=== PATIENT | female | born 1970 | race African-American/Black ===

== ENCOUNTER 2017-08-18 14:51 | Inpatient (IN) | payer MEDICAID ==
[~2017-08-18] VITALS: Ht 167.6 cm; Wt 104.8 kg
[2017-08-18] MEDS ORDERED: OMEPRAZOLE40 M1 ORAL (14:58)
[2017-08-18] MEDS ORDERED: ASPIR 8181 MG ORAL (14:58)
[2017-08-18] MEDS ORDERED: DILTIAZEM 24HR120 M1 ORAL (14:58)
[2017-08-18] MEDS ORDERED: METOPROLOL SUCC25 MG ORAL (14:58)
[2017-08-18 14:59] VITALS: BP 146/91
[2017-08-18] MEDS ORDERED: Sodium Chloride 500ML 500 ML IV ONE (15:12)
[2017-08-18] MEDS: Nitroglycerin Subl 0.4mg tab SL PRN ×2 (15:35→17:32)
[2017-08-18 15:46] LABS: BASOPHILS % (AUTO) 0.6 % (0.0-2.0); EOSINOPHILS % (AUTO) 0.9 % (0.0-3.0); HEMATOCRIT 36.3 % (37.0-47.0); HEMOGLOBIN 11.2 G/DL (12.0-16.0); LYMPHOCYTES % (AUTO) 15.3 % (20.0-45.0); MEAN CORPUSCULAR VOLUME 82 FL (80-99); MONOCYTES % (AUTO) 4.2 % (1.0-10.0); PLATELET COUNT 421 K/UL (150-450); RED BLOOD COUNT 4.44 M/UL (4.20-5.40); RED CELL DISTRIBUTION WIDTH 14.6 % (11.6-14.8); WHITE BLOOD COUNT 14.6 K/UL (4.8-10.8)
--- NOTE | 2017-08-18 15:46 | Diagnostic Imaging Report ---
Indication: Chest pain Technique: XRAY Chest 1v Comparison: None Findings: Low lung volumes artifactually exaggerate heart size and vascular markings. Heart size and not reliably assessed but may be within the upper limits for normal. There is slight haziness of the bilateral lower lungs which is likely related to vascular crowding given low lung volumes. No definite focal airspace consolidation, no pleural effusion. No pneumothorax. No acute bony lesion seen. Impression: Limited exam with low lung volumes. Slight haziness of the bilateral lower lungs thought to be related to vascular crowding, exaggerated by low lung volumes. Heart size is also not well assessed. Consider repeat evaluation with improved inspiratory effort for better evaluation as clinically indicated. No definite focal airspace consolidation.
[2017-08-18 15:59] LABS: ANION GAP 13 mmol/L (5-15); BLOOD UREA NITROGEN 9 mg/dL (7-18); CALCIUM 8.8 MG/DL (8.5-10.1); CARBON DIOXIDE 23 MMOL/L (21-32); CHLORIDE 103 MMOL/L (98-107); CREATININE 0.9 MG/DL (0.55-1.30); POTASSIUM 3.5 MMOL/L (3.5-5.1); SODIUM 139 MMOL/L (136-145)
[2017-08-18 16:16] LABS: ALANINE AMINOTRANSFERASE 14 U/L (12-78); ALBUMIN 3.3 G/DL (3.4-5.0); ALBUMIN/GLOBULIN RATIO 0.9 (1.0-2.7); ALKALINE PHOSPHATASE 91 U/L (46-116); ASPARTATE AMINO TRANSFERASE 14 U/L (15-37); BILIRUBIN,TOTAL 0.2 MG/DL (0.2-1.0); CKMB < 0.5 NG/ML (0.0-3.6); CREATINE KINASE 45 U/L (26-308)
[2017-08-18] MEDS ORDERED: Morphine Sulfate 2mg/ml Inj IVP ONE (16:45)
[2017-08-18 17:00] VITALS: BP 130/75
[2017-08-18 17:30] LABS: APPEARANCE,URINE CLEAR; BILIRUBIN, URINE NEGATIVE (NEGATIVE); GLUCOSE, URINE (UA) NEGATIVE (NEGATIVE); KETONES,URINE NEGATIVE (NEGATIVE); LEUKOCYTE ESTERASE ,URINE 1+ (NEGATIVE); NITRITE,URINE NEGATIVE (NEGATIVE); PH,URINE 6 (4.5-8.0); PROTEIN,URINE 1+ (NEGATIVE); UROBILINOGEN,URINE NORMAL MG/DL (0.0-1.0)
[2017-08-18] MEDS ORDERED: Mylanta II UD 30ml ORAL PRN (17:30)
[2017-08-18] MEDS ORDERED: Nitroglycerin Subl 0.4mg tab SL PRN (17:30)
[2017-08-18] MEDS ORDERED: Morphine Sulfate 4mg/ml Inj IVP ONE (17:30)
[2017-08-18] MEDS ORDERED: Acetaminophen 650 MG SUPP RECTAL PRN ×2 (17:30)
[2017-08-18] MEDS ORDERED: Zolpidem 5mg tab ORAL PRN (17:30)
[2017-08-18] MEDS ORDERED: Morphine Sulfate 4mg/ml Inj IVP PRN (17:30)
[2017-08-18] MEDS ORDERED: Miralax 17gm pkt ORAL PRN (17:30)
[2017-08-18 17:33] LABS: COLOR,URINE YELLOW
[2017-08-18 18:15] VITALS: BP 128/72
[2017-08-18 20:23] VITALS: BP 143/60
[2017-08-18] MEDS: Albuterol/Ipratropium 3ml neb HHN PRN (21:17)
[2017-08-18] MEDS: Atorvastatin 80mg tab ORAL SCH (21:27)
[2017-08-18] MEDS: Docusate 100mg cap ORAL SCH (21:28)
[2017-08-18] MEDS: Metoprolol Succinate XL 25mg tab ORAL SCH (21:28)
[2017-08-18] MEDS: Heparin 5000 units/ml inj SUBQ SCH (21:30)
[2017-08-18] MEDS: Morphine Sulfate 2mg/ml Inj IVP PRN (21:34)
--- NOTE | 2017-08-18 22:09 | Emergency Room Report ---
History of Present Illness General Chief Complaint: Chest Pain Source: Patient Present Illness HPI 47-year-old female presents ED complaining of chest pain which started today. Sudden onset. Midsternal, pressure-like, 8 out of 10. Denies fevers or chills. Notes history of hypertension and prior history of [place]. Denies alcohol or drug use. No other aggravating or leading factors. Denies any other associated symptoms Allergies: Coded Allergies: SULFA (SULFONAMIDE ANTIBIOTICS) (Unverified Allergy, Unknown, 08/18/17) Patient History Past Medical History: HTN Past Surgical History: none Pertinent Family History: none Social History: Denies: smoking, alcohol use, drug use Last Menstrual Period: hysterectomy done on 2009 Now: No Immunizations: UTD Reviewed Nursing Documentation: PMH: Agreed, PSxH: Agreed Nursing Documentation-PMH Past Medical History: No History, Except For Hx Cardiac Problems: Yes Hx Hypertension: Yes Hx Cancer: No Hx Gastrointestinal Problems: No Hx Neurological Problems: No Review of Systems All Other Systems: negative except mentioned in HPI Physical Exam Vital Signs Date Time Temp Pulse Resp B/P (MAP) Pulse Ox O2 Delivery O2 Flow Rate FiO2 08/18/17 14:53 99.1 84 17 146/91 100 Room Air 08/18/17 21:18 21 Sp02 EP Interpretation: reviewed, normal General Appearance: no apparent distress, alert, GCS 15, non-toxic Head: normocephalic, atraumatic Eyes: bilateral eye normal inspection, bilateral eye PERRL ENT: hearing grossly normal, normal pharynx, no angioedema, normal voice Neck: full range of motion, supple/symm/no masses Respiratory: chest non-tender, lungs clear, normal breath sounds, speaking full sentences Cardiovascular #1: regular rate, rhythm, no edema Cardiovascular #2: 2+ carotid (R), 2+ carotid (L), 2+ radial (R), 2+ radial (L) , 2+ dorsalis pedis (R), 2+ dorsalis pedis (L) Gastrointestinal: normal bowel sounds, non tender, soft, non-distended, no guarding, no rebound Rectal: deferred Genitourinary: normal inspection, no CVA tenderness Musculoskeletal: back normal, gait/station normal, normal range of motion, non- tender Neurologic: alert, oriented x3, responsive, motor strength/tone normal, sensory intact, speech normal Psychiatric: judgement/insight normal, memory normal, mood/affect normal, no suicidal/homicidal ideation Reflexes: 3+ bicep (R), 3+ bicep (L), 3+ tricep (R), 3+ tricep (L), 3+ knee (R) , 3+ knee (L) Skin: normal color, no rash, warm/dry, well hydrated Lymphatic: no adenopathy Medical Decision Making Diagnostic Impression: Primary Impression: ACS (acute coronary syndrome) ER Course Hospital Course 47-year-old female present to ED complaining of chest pain Differential diagnoses include: [place]/unstable angina, contusion, muscle strain, PTX, rib fracture Clinical course Patient placed on stretcher. on quality assurance monitor chassis. After initial history and physical I ordered labs, EKG, chest x-ray, ASA, NTG, morphine labs reviewed- noted leukocytois, hb/hct stable, electrolytes ok, trop negative EKG - NSR, no acute ischemic changes interpreted by me Chest x-ray- no acute process Chest pain improved after nitroglycerin. Given history of hypertension and [place] I believe patient should be admitted. Case discussed with Dr. Mosquera and he agreed to accept the patient to his service for further care and support I. I feel this is a highly complex case requiring extensive working including EKG/Rhythm strip, Xray/CT/US, Blood/urine lab work, repeat exams while in ED, and administration of strong opiates/narcotics for pain control, admission to hospital or close patient follow up. Diagnosis - ACS admitted to telemetry in serious condition Labs Test 08/18/17 15:25 08/18/17 17:00 08/18/17 20:48 White Blood Count 14.6 K/UL (4.8-10.8) Red Blood Count 4.44 M/UL (4.20-5.40) Hemoglobin 11.2 G/DL (12.0-16.0) Hematocrit 36.3 % (37.0-47.0) Mean Corpuscular Volume 82 FL (80-99) Mean Corpuscular Hemoglobin 25.3 PG (27.0-31.0) Mean Corpuscular Hemoglobin Concent 31.0 G/DL (32.0-36.0) Red Cell Distribution Width 14.6 % (11.6-14.8) Platelet Count 421 K/UL (150-450) Mean Platelet Volume 6.9 FL (6.5-10.1) Neutrophils (%) (Auto) 79.0 % (45.0-75.0) Lymphocytes (%) (Auto) 15.3 % (20.0-45.0) Monocytes (%) (Auto) 4.2 % (1.0-10.0) Eosinophils (%) (Auto) 0.9 % (0.0-3.0) Basophils (%) (Auto) 0.6 % (0.0-2.0) Sodium Level 139 MMOL/L (136-145) Potassium Level 3.5 MMOL/L (3.5-5.1) Chloride Level 103 MMOL/L (98-107) Carbon Dioxide Level 23 MMOL/L (21-32) Anion Gap 13 mmol/L (5-15) Blood Urea Nitrogen 9 mg/dL (7-18) Creatinine 0.9 MG/DL (0.55-1.30) Estimat Glomerular Filtration Rate > 60 mL/min (>60) Glucose Level 126 MG/DL (74-106) Calcium Level 8.8 MG/DL (8.5-10.1) Total Bilirubin 0.2 MG/DL (0.2-1.0) Aspartate Amino Transf (AST/SGOT) 14 U/L (15-37) Alanine Aminotransferase (ALT/SGPT) 14 U/L (12-78) Alkaline Phosphatase 91 U/L (46-116) Total Creatine Kinase 45 U/L (26-308) Creatine Kinase MB < 0.5 NG/ML (0.0-3.6) Creatine Kinase MB Relative Index 1.1 Troponin I 0.000 ng/mL (0.000-0.056) 0.000 ng/mL (0.000-0.056) Pro-B-Type Natriuretic Peptide 99 pg/mL (0-125) Total Protein 7.1 G/DL (6.4-8.2) Albumin 3.3 G/DL (3.4-5.0) Globulin 3.8 g/dL Albumin/Globulin Ratio 0.9 (1.0-2.7) Urine Color Yellow Urine Appearance Clear Urine pH 6 (4.5-8.0) Urine Specific [place] 1.015 (1.005-1.035) Urine Protein 1+ (NEGATIVE) Urine Glucose (UA) Negative (NEGATIVE) Urine Ketones Negative (NEGATIVE) Urine Occult Blood 1+ (NEGATIVE) Urine Nitrite Negative (NEGATIVE) Urine Bilirubin Negative (NEGATIVE) Urine Urobilinogen Normal MG/DL (0.0-1.0) Urine Leukocyte Esterase 1+ (NEGATIVE) Urine RBC 2-4 /HPF (0 - 2) Urine WBC 0-2 /HPF (0 - 2) Urine Squamous Epithelial Cells Few /LPF (NONE/OCC) Urine Bacteria Few /HPF (NONE) Urine HCG, Qualitative Negative Urine Opiates Screen Negative (NEGATIVE) Urine Barbiturates Screen Negative (NEGATIVE) Phencyclidine (PCP) Screen Negative (NEGATIVE) Urine Amphetamines Screen Negative (NEGATIVE) Urine Benzodiazepines Screen Negative (NEGATIVE) Urine Cocaine Screen Negative (NEGATIVE) Urine Marijuana (THC) Screen Negative (NEGATIVE) EKG Diagnostic Results Rate: normal Rhythm: NSR ST Segments: no acute changes ASA given to the pt in ED: Yes Rhythm Strip Diag. Results EP Interpretation: yes Rhythm: NSR, no PVC's, no ectopy Chest X-Ray Diagnostic Results Chest X-Ray Diagnostic Results : Chest X-Ray Ordered: Yes # of Views/Limited/Complete: 1 View Indication: Chest Pain EP Interpretation: Yes Interpretation: no consolidation, no effusion, no pneumothorax, no acute cardiopulmonary disease Impression: No acute disease Electronically Signed by: Electronically signed by Cornelio Anguiano MD Last Vital Signs Date Time Temp Pulse Resp B/P (MAP) Pulse Ox O2 Delivery O2 Flow Rate FiO2 08/18/17 21:28 78 143/60 08/18/17 21:19 21 08/18/17 21:18 18 97 Room Air 08/18/17 20:23 98.2 Status: improved Disposition: ADMITTED INPATIENT Condition: Serious Referrals: NOT CHOSEN IPA/,REFERRING (PCP) CORNELIO ANGUIANO M.D. Aug 18, 2017 22:09
[2017-08-18] MEDS: Ketotifen Fumarate 0.035% 5ml LEFT EYE SCH (23:13)
[2017-08-18] MEDS: Erythromycin Opth Ointment 3.5gm LEFT EYE SCH (23:13)
[2017-08-19 00:15] VITALS: BP 125/81
[2017-08-19] MEDS: Morphine Sulfate 2mg/ml Inj IVP PRN ×4 (03:12→22:34)
[2017-08-19 04:10] VITALS: BP 118/77
[2017-08-19 07:40] LABS: BASOPHILS % (AUTO) 0.9 % (0.0-2.0); EOSINOPHILS % (AUTO) 2.8 % (0.0-3.0); HEMATOCRIT 34.4 % (37.0-47.0); HEMOGLOBIN 10.9 G/DL (12.0-16.0); LYMPHOCYTES % (AUTO) 32.4 % (20.0-45.0); MEAN CORPUSCULAR VOLUME 82 FL (80-99); NEUTROPHILS % (AUTO) 57.8 % (45.0-75.0); PLATELET COUNT 359 K/UL (150-450); RED BLOOD COUNT 4.19 M/UL (4.20-5.40); RED CELL DISTRIBUTION WIDTH 14.9 % (11.6-14.8); WHITE BLOOD COUNT 8.7 K/UL (4.8-10.8)
[2017-08-19] MEDS: Albuterol/Ipratropium 3ml neb HHN PRN (07:57)
[2017-08-19 08:00] VITALS: BP 114/75
[2017-08-19] MEDS: Erythromycin Opth Ointment 3.5gm LEFT EYE SCH ×4 (08:08→20:49)
[2017-08-19] MEDS: dilTIAZem HCl CD 120mg cap ORAL SCH (08:08)
[2017-08-19] MEDS: Docusate 100mg cap ORAL SCH ×2 (08:08→20:49)
[2017-08-19] MEDS: Aspirin EC 81mg tab ORAL SCH (08:08)
[2017-08-19] MEDS: Metoprolol Succinate XL 25mg tab ORAL SCH ×2 (08:08→17:06)
[2017-08-19] MEDS: Heparin 5000 units/ml inj SUBQ SCH ×2 (08:10→20:50)
[2017-08-19 08:26] LABS: ANION GAP 9 mmol/L (5-15); BLOOD UREA NITROGEN 11 mg/dL (7-18); CALCIUM 8.4 MG/DL (8.5-10.1); CARBON DIOXIDE 28 MMOL/L (21-32); CHLORIDE 105 MMOL/L (98-107); CHOLESTEROL 131 MG/DL (< 200); CREATININE 0.9 MG/DL (0.55-1.30); HDL CHOLESTEROL 36 MG/DL (40-60); POTASSIUM 3.8 MMOL/L (3.5-5.1); SODIUM 141 MMOL/L (136-145); TRIGLYCERIDES 117 MG/DL (30-150)
[2017-08-19] MEDS: Ketotifen Fumarate 0.035% 5ml LEFT EYE SCH ×2 (10:25→15:28)
--- NOTE | 2017-08-19 10:40 | History and Physical ---
History of Present Illness General Date patient seen: Aug 19, 2017 Time patient seen: 10:40 Reason for Hospitalization: Chest Pain Present Illness HPI 47y/o female with pmh of HTN, HLD, GERD who presents with chest pain. Pt c/o mid -sternal, pressure like, 8/10, but did not have any radiation and was sudden onset. The patient denies any prior myocardial infarction. Denies f/c, n/v, d/c, SOB, abd pain. Chest pain not related to activity. Pt also notes URI symptoms including L eye itching/pain, cough, congestion, sinus pain, headache for the past few days. Allergies: Coded Allergies: SULFA (SULFONAMIDE ANTIBIOTICS) (Unverified Allergy, Unknown, 08/18/17) Medication History Scheduled Aspirin* (Aspir 81*), 81 MG ORAL DAILY Benzonatate* (Benzonatate*), 100 MG ORAL THREE TIMES A DAY Diltiazem Hcl* (Diltiazem 24HR Er*), 240 MG ORAL DAILY Erythromycin Base (Erythromycin*), 1 APPLIC LEFT EYE QID Guaifenesin (Mucinex), 600 MG ORAL TWICE A DAY Ketotifen Fumarate (Eye Itch Relief), 1 DROP LEFT EYE BID@1100,1600 Metoprolol Succinate* (Metoprolol Succinate*), 25 MG ORAL BID Omeprazole (Omeprazole), 40 MG ORAL DAILY Scheduled PRN Guaifenesin/Codeine Phos* (Robitussin Ac*), 1 TSP ORAL Q4H PRN Patient History History Provided By: Patient, Family Member, Medical Record, EMS Healthcare decision maker Resuscitation status Full Code Advanced Directive on File Past Medical/Surgical History Past Medical/Surgical History: (1) HTN (hypertension) (2) HLD (hyperlipidemia) (3) GERD (gastroesophageal reflux disease) Family History Family History: Patient reports no known family medical history. Social History Social History: (1) No significant social history Review of Systems Constitutional: Reports: malaise, weakness Eye: Reports: eye pain, tearing, nose congestion ENT: Reports: nose congestion Respiratory: Reports: cough Cardiovascular: Reports: chest pain Gastrointestinal: Reports: no symptoms Genitourinary: Reports: no symptoms Musculoskeletal: Reports: no symptoms Skin: Reports: no symptoms Psychiatric: Reports: no symptoms Neurological: Reports: no symptoms Endocrine: Reports: no symptoms Hematologic/Lymphatic: Reports: no symptoms Physical Exam Physical Exam Narrative General: alert, cooperative, no distress, appears stated age Head: normocephalic, without obvious abnormality, atraumatic Eyes: conjunctivae/corneas clear. PERRL, EOM's intact Throat: lips, mucosa, and tongue normal. MMM Neck: supple, symmetrical, trachea midline, and no JVD Lungs: clear to auscultation bilaterally Heart: regular rate and rhythm, S1, S2 normal, no murmur, click, rub or gallop Abdomen: soft, non-tender, non-distended, bowel sounds normal; no masses or organomegaly Extremities: extremities normal, atraumatic, no cyanosis or edema Pulses: 2+ and symmetric Skin: skin color, texture, turgor normal; no rashes or lesions Neurologic: grossly normal, no focal deficits Last 24 Hour Vital Signs Date Time Temp Pulse Resp B/P (MAP) Pulse Ox O2 Delivery O2 Flow Rate FiO2 08/19/17 08:09 72 20 99 Nasal Cannula 2.0 28 08/19/17 08:08 72 114/75 08/19/17 08:08 72 114/75 08/19/17 08:00 97.8 72 20 114/75 99 Nasal Cannula 2.0 08/19/17 08:00 67 08/19/17 07:57 78 24 99 Nasal Cannula 2.0 28 08/19/17 07:57 78 24 Nasal Cannula 2.0 28 08/19/17 04:10 97.9 78 20 118/77 97 Room Air 08/19/17 04:00 Nasal Cannula 2.0 08/19/17 04:00 63 08/19/17 00:15 98.1 77 20 125/81 96 08/19/17 00:00 74 08/18/17 21:28 78 143/60 08/18/17 21:19 21 08/18/17 21:18 78 18 97 Room Air 21 08/18/17 21:18 78 18 Room Air 21 08/18/17 20:23 98.2 82 20 143/60 96 08/18/17 20:00 78 08/18/17 18:15 96.9 82 17 128/72 82 Room Air 08/18/17 17:45 99.1 78 20 130/75 98 Room Air 08/18/17 17:32 130/75 08/18/17 17:28 99.1 08/18/17 17:00 78 20 130/75 98 Room Air 08/18/17 16:54 99.1 08/18/17 15:35 143/78 08/18/17 14:59 85 19 Room Air 08/18/17 14:59 85 19 146/91 100 Room Air 08/18/17 14:53 99.1 84 17 146/91 100 Room Air Intake and Output 08/18/17 08/19/17 19:00 07:00 Intake Total 500 ml 240 ml Balance 500 ml 240 ml Intake Oral 0 ml 240 ml IV Total 500 ml # Voids 2 Laboratory Tests Test 08/18/17 15:25 08/18/17 17:00 08/18/17 20:48 08/19/17 05:20 White Blood Count 14.6 K/UL (4.8-10.8) H 8.7 K/UL (4.8-10.8) Red Blood Count 4.44 M/UL (4.20-5.40) 4.19 M/UL (4.20-5.40) L Hemoglobin 11.2 G/DL (12.0-16.0) L 10.9 G/DL (12.0-16.0) L Hematocrit 36.3 % (37.0-47.0) L 34.4 % (37.0-47.0) L Mean Corpuscular Volume 82 FL (80-99) 82 FL (80-99) Mean Corpuscular Hemoglobin 25.3 PG (27.0-31.0) L 26.1 PG (27.0-31.0) L Mean Corpuscular Hemoglobin Concent 31.0 G/DL (32.0-36.0) L 31.8 G/DL (32.0-36.0) L Red Cell Distribution Width 14.6 % (11.6-14.8) 14.9 % (11.6-14.8) H Platelet Count 421 K/UL (150-450) 359 K/UL (150-450) Mean Platelet Volume 6.9 FL (6.5-10.1) 6.9 FL (6.5-10.1) Neutrophils (%) (Auto) 79.0 % (45.0-75.0) H 57.8 % (45.0-75.0) Lymphocytes (%) (Auto) 15.3 % (20.0-45.0) L 32.4 % (20.0-45.0) Monocytes (%) (Auto) 4.2 % (1.0-10.0) 6.0 % (1.0-10.0) Eosinophils (%) (Auto) 0.9 % (0.0-3.0) 2.8 % (0.0-3.0) Basophils (%) (Auto) 0.6 % (0.0-2.0) 0.9 % (0.0-2.0) Sodium Level 139 MMOL/L (136-145) 141 MMOL/L (136-145) Potassium Level 3.5 MMOL/L (3.5-5.1) 3.8 MMOL/L (3.5-5.1) Chloride Level 103 MMOL/L (98-107) 105 MMOL/L (98-107) Carbon Dioxide Level 23 MMOL/L (21-32) 28 MMOL/L (21-32) Anion Gap 13 mmol/L (5-15) 9 mmol/L (5-15) Blood Urea Nitrogen 9 mg/dL (7-18) 11 mg/dL (7-18) Creatinine 0.9 MG/DL (0.55-1.30) 0.9 MG/DL (0.55-1.30) Estimat Glomerular Filtration Rate > 60 mL/min (>60) > 60 mL/min (>60) Glucose Level 126 MG/DL (74-106) H 98 MG/DL (74-106) Calcium Level 8.8 MG/DL (8.5-10.1) 8.4 MG/DL (8.5-10.1) L Total Bilirubin 0.2 MG/DL (0.2-1.0) Aspartate Amino Transf (AST/SGOT) 14 U/L (15-37) L Alanine Aminotransferase (ALT/SGPT) 14 U/L (12-78) Alkaline Phosphatase 91 U/L (46-116) Total Creatine Kinase 45 U/L (26-308) Creatine Kinase MB < 0.5 NG/ML (0.0-3.6) Creatine Kinase MB Relative Index 1.1 Troponin I 0.000 ng/mL (0.000-0.056) 0.000 ng/mL (0.000-0.056) 0.000 ng/mL (0.000-0.056) Pro-B-Type Natriuretic Peptide 99 pg/mL (0-125) Total Protein 7.1 G/DL (6.4-8.2) Albumin 3.3 G/DL (3.4-5.0) L Globulin 3.8 g/dL Albumin/Globulin Ratio 0.9 (1.0-2.7) L Urine Color Yellow Urine Appearance Clear Urine pH 6 (4.5-8.0) Urine Specific [place] 1.015 (1.005-1.035) Urine Protein 1+ (NEGATIVE) H Urine Glucose (UA) Negative (NEGATIVE) Urine Ketones Negative (NEGATIVE) Urine Occult Blood 1+ (NEGATIVE) H Urine Nitrite Negative (NEGATIVE) Urine Bilirubin Negative (NEGATIVE) Urine Urobilinogen Normal MG/DL (0.0-1.0) Urine Leukocyte Esterase 1+ (NEGATIVE) H Urine RBC 2-4 /HPF (0 - 2) H Urine WBC 0-2 /HPF (0 - 2) Urine Squamous Epithelial Cells Few /LPF (NONE/OCC) Urine Bacteria Few /HPF (NONE) Urine HCG, Qualitative Negative Urine Opiates Screen Negative (NEGATIVE) Urine Barbiturates Screen Negative (NEGATIVE) Phencyclidine (PCP) Screen Negative (NEGATIVE) Urine Amphetamines Screen Negative (NEGATIVE) Urine Benzodiazepines Screen Negative (NEGATIVE) Urine Cocaine Screen Negative (NEGATIVE) Urine Marijuana (THC) Screen Negative (NEGATIVE) Hemoglobin A1c 6.5 % (4.3-6.0) H Triglycerides Level 117 MG/DL (30-150) Cholesterol Level 131 MG/DL (< 200) LDL Cholesterol 79 mg/dL (<100) HDL Cholesterol 36 MG/DL (40-60) L Cholesterol/HDL Ratio 3.6 (3.3-4.4) Thyroid Stimulating Hormone (TSH) 3.775 uiU/mL (0.358-3.740) Microbiology Date/Time Source Procedure Growth Status 08/18/17 20:50 Nasal Nares Influenza Types A,B Antigen (TASHA) - Final Complete Height (Feet): 5 Height (Inches): 6.00 Weight (Pounds): 231 Medications Current Medications Medications (Trade) Dose Ordered Sig/Berenice Route PRN Reason Start Time Stop Time Status Last Admin Dose Admin Acetaminophen (Tylenol) 650 mg Q4H PRN ORAL Mild Pain (Pain Scale 1-3) 08/18/17 17:30 09/17/17 17:29 08/18/17 20:03 Acetaminophen (Tylenol) 650 mg Q4H PRN ORAL FEVER 08/18/17 17:30 09/17/17 17:29 Acetaminophen (Tylenol) 650 mg Q4H PRN RECTAL FEVER 08/18/17 17:30 09/17/17 17:29 Acetaminophen (Tylenol) 650 mg Q4H PRN RECTAL Mild Pain (Pain Scale 1-3) 08/18/17 17:30 09/17/17 17:29 Al Hydroxide/Mg Hydroxide (Mylanta II) 30 ml Q6H PRN ORAL dyspepsia 08/18/17 17:30 09/17/17 17:29 Albuterol/ Ipratropium (Albuterol/ Ipratropium) 3 ml Q4H PRN HHN Shortness of Breath 08/18/17 20:30 08/23/17 20:29 08/19/17 07:57 Aspirin (Ecotrin) 81 mg DAILY ORAL 08/19/17 09:00 09/18/17 08:59 08/19/17 08:08 Atorvastatin Calcium (Lipitor) 80 mg BEDTIME ORAL 08/18/17 21:00 09/17/17 20:59 08/18/17 21:27 Diltiazem HCl (Cardizem CD) 240 mg DAILY ORAL 08/19/17 09:00 09/18/17 08:59 08/19/17 08:08 Diphenhydramine HCl (Benadryl) 25 mg Q6H PRN ORAL Itching/Pruritis 08/18/17 17:30 09/17/17 17:29 Docusate Sodium (Colace) 100 mg EVERY 12 HOURS ORAL 08/18/17 21:00 09/17/17 20:59 08/19/17 08:08 Erythromycin (Ilotycin) 1 applic QID LEFT EYE 08/18/17 23:00 08/25/17 22:59 08/19/17 08:08 Heparin Sodium (Porcine) (Heparin 5000 units/ml) 5,000 units EVERY 12 HOURS SUBQ 08/18/17 21:00 09/17/17 20:59 08/19/17 08:10 Ketotifen Fumarate (Zatidor) 1 drop BID@1100,1600 LEFT EYE 08/18/17 23:00 09/17/17 22:59 08/19/17 10:25 Metoprolol Succinate (Toprol XL) 25 mg BID ORAL 08/18/17 21:00 09/17/17 20:59 08/19/17 08:08 Morphine Sulfate (Morphine Sulfate) 2 mg Q4H PRN IVP Moderate Pain (Pain Scale 4-6) 08/18/17 17:30 08/25/17 17:29 08/19/17 08:09 Morphine Sulfate (Morphine Sulfate) 4 mg Q4H PRN IVP Severe Pain (Pain Scale 7-10) 08/18/17 17:30 08/25/17 17:29 Nitroglycerin (Ntg) 0.4 mg Q5MIN X 3 DOSES PRN SL Prn Chest Pain 08/18/17 17:30 09/17/17 17:29 Ondansetron HCl (Zofran) 4 mg Q6H PRN IVP Nausea & Vomiting 08/18/17 17:30 09/17/17 17:29 08/18/17 21:32 Pantoprazole (Protonix) 40 mg DAILY ORAL 08/19/17 09:00 09/18/17 08:59 08/19/17 08:08 Polyethylene Glycol (Miralax) 17 gm DAILYPRN PRN ORAL Constipation 08/18/17 17:30 09/17/17 17:29 Zolpidem Tartrate (Ambien) 5 mg HSPRN PRN ORAL Insomnia 08/18/17 17:30 08/25/17 17:29 Assessment/Plan Problem List: (1) Chest pain ICD Codes: R07.9 - Chest pain, unspecified SNOMED: 12037669 (2) HTN (hypertension) ICD Codes: I10 - Essential (primary) hypertension SNOMED: 44662540 (3) HLD (hyperlipidemia) ICD Codes: E78.5 - Hyperlipidemia, unspecified SNOMED: 46976206 (4) GERD (gastroesophageal reflux disease) ICD Codes: K21.9 - Gastro-esophageal reflux disease without esophagitis SNOMED: 907992699 (5) Conjunctivitis ICD Codes: H10.9 - Unspecified conjunctivitis SNOMED: 0079996 Status: stable Assessment/Plan Admit to tele Trend trop/EKG Check TTE Cardiology consulted Symptomatic mgmt for likely viral illness Erythromycin ointment to L eye for possible bacterial conjunctivitis Cont home meds Pain control, bowel regimen Supportive care DVT ppx: SCDs, HSQ Dispo: pending cardiac eval D/w pt/family, RN, SW/CM, cardiology regarding mgmt and dispo Letty King M.D. Aug 19, 2017 10:40
[2017-08-19] MEDS ORDERED: Morphine Sulfate 4mg/ml Inj IVP ONE (11:40)
[2017-08-19 12:00] VITALS: BP 122/80
--- NOTE | 2017-08-19 15:47 | Cardiac Electrophysiology PN ---
Subjective Subjective [id number]. Stress test in am. Objective Last 24 Hour Vital Signs Date Time Temp Pulse Resp B/P (MAP) Pulse Ox O2 Delivery O2 Flow Rate FiO2 08/19/17 12:00 97.6 79 22 122/80 99 Room Air 08/19/17 12:00 74 08/19/17 08:09 72 20 99 Nasal Cannula 2.0 28 08/19/17 08:08 72 114/75 08/19/17 08:08 72 114/75 08/19/17 08:00 97.8 72 20 114/75 99 Nasal Cannula 2.0 08/19/17 08:00 67 08/19/17 07:57 78 24 99 Nasal Cannula 2.0 28 08/19/17 07:57 78 24 Nasal Cannula 2.0 28 08/19/17 04:10 97.9 78 20 118/77 97 Room Air 08/19/17 04:00 Nasal Cannula 2.0 08/19/17 04:00 63 08/19/17 00:15 98.1 77 20 125/81 96 08/19/17 00:00 74 08/18/17 21:28 78 143/60 08/18/17 21:19 21 08/18/17 21:18 78 18 97 Room Air 21 08/18/17 21:18 78 18 Room Air 21 08/18/17 20:23 98.2 82 20 143/60 96 08/18/17 20:00 78 08/18/17 18:15 96.9 82 17 128/72 82 Room Air 08/18/17 17:45 99.1 78 20 130/75 98 Room Air 08/18/17 17:32 130/75 08/18/17 17:28 99.1 08/18/17 17:00 78 20 130/75 98 Room Air 08/18/17 16:54 99.1 Intake and Output 08/18/17 08/19/17 19:00 07:00 Intake Total 500 ml 240 ml Balance 500 ml 240 ml Intake Oral 0 ml 240 ml IV Total 500 ml # Voids 2 Laboratory Tests Test 08/18/17 17:00 08/18/17 20:48 08/19/17 05:20 Urine Color Yellow Urine Appearance Clear Urine pH 6 (4.5-8.0) Urine Specific [place] 1.015 (1.005-1.035) Urine Protein 1+ (NEGATIVE) H Urine Glucose (UA) Negative (NEGATIVE) Urine Ketones Negative (NEGATIVE) Urine Occult Blood 1+ (NEGATIVE) H Urine Nitrite Negative (NEGATIVE) Urine Bilirubin Negative (NEGATIVE) Urine Urobilinogen Normal MG/DL (0.0-1.0) Urine Leukocyte Esterase 1+ (NEGATIVE) H Urine RBC 2-4 /HPF (0 - 2) H Urine WBC 0-2 /HPF (0 - 2) Urine Squamous Epithelial Cells Few /LPF (NONE/OCC) Urine Bacteria Few /HPF (NONE) Urine HCG, Qualitative Negative Urine Opiates Screen Negative (NEGATIVE) Urine Barbiturates Screen Negative (NEGATIVE) Phencyclidine (PCP) Screen Negative (NEGATIVE) Urine Amphetamines Screen Negative (NEGATIVE) Urine Benzodiazepines Screen Negative (NEGATIVE) Urine Cocaine Screen Negative (NEGATIVE) Urine Marijuana (THC) Screen Negative (NEGATIVE) Troponin I 0.000 ng/mL (0.000-0.056) 0.000 ng/mL (0.000-0.056) White Blood Count 8.7 K/UL (4.8-10.8) Red Blood Count 4.19 M/UL (4.20-5.40) L Hemoglobin 10.9 G/DL (12.0-16.0) L Hematocrit 34.4 % (37.0-47.0) L Mean Corpuscular Volume 82 FL (80-99) Mean Corpuscular Hemoglobin 26.1 PG (27.0-31.0) L Mean Corpuscular Hemoglobin Concent 31.8 G/DL (32.0-36.0) L Red Cell Distribution Width 14.9 % (11.6-14.8) H Platelet Count 359 K/UL (150-450) Mean Platelet Volume 6.9 FL (6.5-10.1) Neutrophils (%) (Auto) 57.8 % (45.0-75.0) Lymphocytes (%) (Auto) 32.4 % (20.0-45.0) Monocytes (%) (Auto) 6.0 % (1.0-10.0) Eosinophils (%) (Auto) 2.8 % (0.0-3.0) Basophils (%) (Auto) 0.9 % (0.0-2.0) Sodium Level 141 MMOL/L (136-145) Potassium Level 3.8 MMOL/L (3.5-5.1) Chloride Level 105 MMOL/L (98-107) Carbon Dioxide Level 28 MMOL/L (21-32) Anion Gap 9 mmol/L (5-15) Blood Urea Nitrogen 11 mg/dL (7-18) Creatinine 0.9 MG/DL (0.55-1.30) Estimat Glomerular Filtration Rate > 60 mL/min (>60) Glucose Level 98 MG/DL (74-106) Hemoglobin A1c 6.5 % (4.3-6.0) H Calcium Level 8.4 MG/DL (8.5-10.1) L Triglycerides Level 117 MG/DL (30-150) Cholesterol Level 131 MG/DL (< 200) LDL Cholesterol 79 mg/dL (<100) HDL Cholesterol 36 MG/DL (40-60) L Cholesterol/HDL Ratio 3.6 (3.3-4.4) Thyroid Stimulating Hormone (TSH) 3.775 uiU/mL (0.358-3.740) Microbiology Date/Time Source Procedure Growth Status 08/18/17 20:50 Nasal Nares Influenza Types A,B Antigen (TASHA) - Final Complete JOAQUIN LUCERO Aug 19, 2017 15:47
[2017-08-19 16:00] VITALS: BP 130/79
[2017-08-19 20:15] VITALS: BP 128/75
[2017-08-19] MEDS: Atorvastatin 80mg tab ORAL SCH (20:49)
--- NOTE | 2017-08-19 22:45 | Consultation ---
DATE OF CONSULTATION: 08/19/2017 CARDIOLOGY CONSULTATION CONSULTING PHYSICIAN: Brando Roy M.D. REFERRING PHYSICIAN: Luba Hermosillo M.D. REASON FOR CONSULTATION: Chest pain. HISTORY OF PRESENT ILLNESS: The patient is a 47-year-old lady with history of hypertension who presented to the emergency room complaining of chest pain of one day duration. The pain was mid-sternal, pressure like, 8/10, but did not have any radiation and was sudden onset. The patient denies any prior myocardial infarction. The patient was admitted and a Cardiology consultation was obtained for further evaluation and management. PAST MEDICAL HISTORY: Includes hypertension. PAST SURGICAL HISTORY: Includes history of hysterectomy in 2009. ALLERGIES: She is allergic to sulfa. FAMILY HISTORY: Noncontributory. REVIEW OF SYSTEMS: Review of systems was negative other than what was mentioned in the history of present illness. PHYSICAL EXAMINATION: VITAL SIGNS: Blood pressure is 122/80, pulse 80, respirations 20, and temperature 97.6. HEAD AND NECK: Showed no JVD. LUNGS: Clear. CARDIOVASCULAR: Shows regular S1 and S2 with no gallop or murmur. ABDOMEN: Soft. EXTREMITIES: No pitting edema. LABORATORY AND DIAGNOSTIC DATA: Her EKG showed normal sinus rhythm with poor R-wave progression. Her echocardiogram showed ejection fraction of 65% with no significant valvular pathology. Labs show white count of 8.2, hemoglobin 10.9, hematocrit 34.4, and platelet count 359. Sodium 141, potassium 3.8, BUN of 11, creatinine 0.9, and glucose of 98. Troponin negative x3. Urine toxicology screen is negative. ASSESSMENT AND PLAN: 1. Atypical chest pain. The patient was ruled out for myocardial infarction with serial cardiac enzymes. EKG active ischemia and ejection fraction within normal range. We will proceed with nuclear stress test for further evaluation and management. 2. Hypertension. Continue Cardizem CD 240 mg daily and Toprol-XL 25 mg b.i.d. 3. Hyperlipidemia, on Lipitor. Thank you very much Dr. Hermosillo for allowing me to participate in the care of this patient. Please do not hesitate to contact me for any questions regarding my evaluation. Brando Roy M.D. DR: SERGE JOB#: [id number] CC:
[2017-08-20 00:15] VITALS: BP 132/83
[2017-08-20 04:30] VITALS: BP 127/77
[2017-08-20] MEDS ORDERED: Lexiscan 0.4mg/5ml syringe IV SCH (06:00)
[2017-08-20 08:15] VITALS: BP 133/89
[2017-08-20] MEDS: Erythromycin Opth Ointment 3.5gm LEFT EYE SCH ×3 (08:58→17:38)
[2017-08-20] MEDS: dilTIAZem HCl CD 120mg cap ORAL SCH (08:59)
[2017-08-20] MEDS: Heparin 5000 units/ml inj SUBQ SCH (09:00)
[2017-08-20] MEDS: guaiFENesin ER 600mg tab ORAL SCH ×2 (09:00→17:24)
[2017-08-20] MEDS: Docusate 100mg cap ORAL SCH (09:00)
[2017-08-20] MEDS: Aspirin EC 81mg tab ORAL SCH (09:00)
[2017-08-20] MEDS: Metoprolol Succinate XL 25mg tab ORAL SCH ×2 (09:00→17:24)
[2017-08-20] MEDS: Ketotifen Fumarate 0.035% 5ml LEFT EYE SCH ×2 (11:33→17:24)
[2017-08-20 12:30] VITALS: BP 133/82
--- NOTE | 2017-08-20 13:32 | Cardiac Electrophysiology PN ---
Assessment/Plan Assessment/Plan 1. Atypical chest pain. Ruled out for myocardial infarction with serial cardiac enzymes. EKG no active ischemia and ejection fraction within normal range. Nuclear stress test for further evaluation and management. 2. Hypertension. Continue Cardizem CD 240 mg daily and Toprol-XL 25 mg b.i.d. 3. Hyperlipidemia, on Lipitor. SOCO RN Subjective Subjective Feeling better. Just had stress test today. Objective Last 24 Hour Vital Signs Date Time Temp Pulse Resp B/P (MAP) Pulse Ox O2 Delivery O2 Flow Rate FiO2 08/20/17 09:00 71 133/89 08/20/17 08:59 71 133/89 08/20/17 08:25 71 20 Room Air 21 08/20/17 08:15 97.5 75 21 133/89 95 Room Air 08/20/17 07:59 86 08/20/17 04:30 97.9 73 20 127/77 95 Room Air 08/20/17 04:00 68 08/20/17 00:15 98.0 72 20 132/83 97 08/20/17 00:00 73 08/19/17 20:15 98.6 78 20 128/75 97 Room Air 08/19/17 20:00 72 08/19/17 19:54 72 16 Room Air 21 08/19/17 17:06 75 130/79 08/19/17 16:00 98.2 75 21 130/79 97 Room Air 08/19/17 16:00 82 Intake and Output 08/19/17 08/20/17 19:00 07:00 Intake Total 700 ml 120 ml Balance 700 ml 120 ml Intake Oral 700 ml 120 ml # Voids 2 2 Microbiology Date/Time Source Procedure Growth Status 08/18/17 20:50 Nasal Nares Influenza Types A,B Antigen (TASHA) - Final Complete Objective HEAD AND NECK: No JVD. LUNGS: Clear. CARDIOVASCULAR: Regular S1 and S2 with no gallop or murmur. ABDOMEN: Soft. EXTREMITIES: No pitting edema. JOAQUIN LUCERO Aug 20, 2017 13:32
[2017-08-20 16:30] VITALS: BP 121/82
[2017-08-20] MEDS ORDERED: ASPIR 8181 MG ORAL (16:48)
[2017-08-20] MEDS ORDERED: GUAIFENESIN-CO118 M1 ORAL (16:49)
[2017-08-20] MEDS ORDERED: ERYTHROMYCIN3.5 GM LEFT EYE (16:49)
[2017-08-20] MEDS ORDERED: MUCINEX600 MG ORAL (16:49)
[2017-08-20] MEDS ORDERED: METOPROLOL SUCC25 MG ORAL (16:49)
[2017-08-20] MEDS ORDERED: OMEPRAZOLE40 M1 ORAL (16:49)
[2017-08-20] MEDS ORDERED: EYE ITCH RELIEF5 ML LEFT EYE (16:49)
[2017-08-20] MEDS ORDERED: DILTIAZEM 24HR120 M1 ORAL (16:49)
[2017-08-20] MEDS ORDERED: BENZONATATE100 MG ORAL (16:55)
--- NOTE | 2017-08-20 19:35 | Diagnostic Imaging Report ---
Indication: Chest pain Technique: The study was conducted under the supervision of a filteration operator. Treadmill stress test was performed with the patient exercising according to the Kiran protocol until symptoms limited further exertion. One minute before termination of exertion, intravenous administration of 31.2 mCi of technetium 99m Myoview was performed. Three plane SPECT imaging of the heart was then performed. A resting study was performed as part of the one-day protocol with 10.5 mCi of technetium 99m myoview injected intravenously at that time. Three plane SPECT imaging of the heart was obtained. Comparison: None Clinical data: 1. Clinical response to exercise stress: Non ischemic 2. Electrocardiographic response to exercise stress: Non ischemic Findings: The myocardial perfusion scan demonstrates no fixed or reversible perfusion defects. LVEF estimated at 77%. IMPRESSION: Negative myocardial perfusion scan
[2017-08-20 20:00] VITALS: BP 137/82
[2017-08-20] MEDS ORDERED: Flu Vaccine Quadrivalent 0.5ml IM ONE (20:00)
--- NOTE | 2017-08-21 15:31 | Cardiology Report ---
APPROVED REPORT EKG Measurement Heart [id number] Normal sinus rhythm Anterior infarct, age undetermined Abnormal ECG
--- NOTE | 2017-08-23 09:48 | Discharge Summary ---
Discharge Summary Hospital Course Date of Admission Aug 18, 2017 at 16:38 Date of Discharge Aug 20, 2017 at 20:35 Admitting Diagnosis ACUTE CORONARY SYNDROME HPI Colleen Tesfaye is a 47 year old female who was admitted on Aug 18, 2017 at 16: 38 for Acute Coronary Syndrome Hospital Course dc summary #[id number] Discharge Medications New Medications: Benzonatate* (Benzonatate*) 100 Mg Capsule 100 MG ORAL THREE TIMES A DAY for 14 Days, #30 PERLE 1 Refill Guaifenesin/Codeine Phos* (Robitussin Ac*) 118 Ml Liquid 1 TSP ORAL Q4H PRN for 14 Days, #118 ML 0 Refills Erythromycin Base (Erythromycin*) 3.5 Gm Oint...g. 1 APPLIC LEFT EYE QID for 5 Days, #10 GM Guaifenesin (Mucinex) 600 Mg Tab.er.12h 600 MG ORAL TWICE A DAY for 14 Days, #30 TAB Ketotifen Fumarate (Eye Itch Relief) 5 Ml Drops 1 DROP LEFT EYE BID@1100,1600 for 14 Days, #100 ML Continued Medications: Aspirin* (Aspir 81*) 81 Mg Tablet. 81 MG ORAL DAILY for 90 Days, #90 TAB 3 Refills (This prescription has been renewed) Diltiazem Hcl* (Diltiazem 24HR Er*) 120 Mg Cap.er.24h 240 MG ORAL DAILY for 30 Days, #30 TAB 0 Refills (This prescription has been renewed) Metoprolol Succinate* (Metoprolol Succinate*) 25 Mg Tab.er.24h 25 MG ORAL BID for 30 Days, #60 TAB 0 Refills (This prescription has been renewed) Omeprazole (Omeprazole) 40 Mg Capsule. 40 MG ORAL DAILY for 30 Days, #30 CAP 1 Refill (This prescription has been renewed) Discharge Condition Upon Discharge: stable Discharge Disposition Patient was discharged to Home (01) Discharge Diagnoses: Discharge Instructions Discharge Instructions Special Instructions I have been assigned to complete a D/C Summary on this account. I was not involved in the patient management Alexandra Reece NP (Vanchtein) Aug 23, 2017 09:48
--- NOTE | 2017-08-23 11:15 | Cardiology Report ---
APPROVED REPORT EXAM: Two-dimensional and M-mode echocardiogram with Doppler and color Doppler. INDICATION Chest Pain M-Mode DIMENSIONS IVSd1.0 (0.7-1.1cm)Left Atrium (MM)3.9 (1.6-4.0cm) LVDd5.0 (3.5-5.6cm)Aortic Root2.6 (2.0-3.7cm) PWd1.2 (0.7-1.1cm)Aortic Cusp Exc.2.0 (1.5-2.0cm) LVDs3.1 (2.5-4.0cm) PWs1.6 cm Normal left ventricular chamber size, systolic function and wall motion. Left ventricular ejection fraction estimated to be 65 %. Borderline left ventricular hypertrophy. Anterior Echo-free space, may be due to pericardial fat or effusion. All other cardiac chamber sizes are within normal limits. Mild focal aortic valve sclerosis with adequate cusp excursion. Mildly thickened mitral valve leaflets with normal excursion. Mild mitral annulus and aortic root calcification. Pulmonic valve not well visualized. Normal tricuspid valve structure. IVC at normal size with physiologic collapse. A color flow and spectral Doppler study was performed and revealed: Trace mitral regurgitation. Mitral inflow indicates normal left ventricular diastolic function. Trace tricuspid regurgitation. Tricuspid systolic velocities suggests peak right ventricular systolic pressure of 20 mmHg. Trace pulmonic regurgitation present.
--- NOTE | 2017-08-24 02:47 | Discharge Summary 2 SIG ---
DATE OF ADMISSION: 08/18/2017 DATE OF DISCHARGE: 08/20/2017 REASON FOR ADMISSION: 47-year-old female with a history of hypertension, hyperlipidemia, presented to emergency department complaining of chest pain. Pain started suddenly, described as midsternal, pressure-like, 8/10 on a scale 1 to 10. The patient with a prior history of myocardial infarction. No fever. No chills. No shortness of breath. Upon evaluation in the emergency department, WBC -14.6. Troponin negative. Urine toxicology screen negative. Chest x-ray revealed no acute cardiopulmonary pathology. EKG revealed normal sinus rhythm. No acute ischemic changes. The patient was admitted with chest pain, rule out acute coronary syndrome. HOSPITAL COURSE: The patient was admitted to telemetry floor. Cardiology consult was requested. Serial troponin x3 negative. EKG showed no acute ischemic changes. Therefore, the patient was ruled out for acute myocardial infarction. Echocardiogram revealed preserved ejection fraction of 65%, right ventricular systolic pressure of 20 as well as the evidence of borderline left ventricular hypertrophy. Subsequently stress test was ordered. Antiplatelets / aspirin and beta-lu were continued. Blood pressure was controlled with beta-lu and calcium channel lu. Lipid panel was stable. Statin was continued. Stress test results were negative. Calculated ejection fraction was 77%. According to bottoming machine operator, the patient had atypical chest pain. DVT and GI prophylaxis provided. Supplemental oxygen provided as needed to keep saturation above 92%. Pulmonary toilet was on the standby to use on as needed basis. Pulse oximetry was stable on room air. Noted mild elevation in TSH. Patient was advised to follow up with primary care provider to check full thyroid function panel. The patient was stable for discharge. FINAL DIAGNOSES: 1. Atypical chest pain. 2. Hypertension. 3. Hyperlipidemia. DISCHARGE MEDICATIONS: See medication reconciliation list. DISCHARGE INSTRUCTIONS: The patient was discharged home. Follow up with primary medical doctor next week. Luba Hermosillo M.D. I have been assigned to dictate discharge summary on this account and I was not involved in the patient's management. Alexandra Reece N.P. (Vanchtein) DR: Jayda JOB#: [id number] CC: RONALDO
--- NOTE | 2017-08-26 16:10 | Physician Query ---
PLEASE COMPLETE THE DOCUMENT BEFORE SIGNING Dear Dr. CASTANEDA Date: 08/26/17 Tire Adjuster/CDS' Name: SHARONA MILLAN CCS Exercise your independent professional judgment when responding to query. Questions asked do not imply particular answer is desired or expected. We greatly appreciate your clarification on this issue. Clinical Documentation States:REASON FOR ADMISSION: 47-year-old female with a history of hypertension, hyperlipidemia, presented to emergency department complaining of chest pain. Pain started suddenly, described as midsternal, pressure-like, 8/10 on a scale 1 to 10. The patient with a prior history of myocardial infarction. HOSPITAL COURSE: The patient was admitted to telemetry floor. Cardiology consult was requested. Serial troponin x3 negative. EKG showed no acute ischemic changes. Therefore, the patient was ruled out for acute myocardial infarction. Echocardiogram revealed preserved ejection fraction of 65%, right ventricular systolic pressure of 20 as well as the evidence of borderline left ventricular hypertrophy. Subsequently stress test was ordered. Antiplatelets / aspirin and beta-lu were continued. Blood pressure was controlled with beta-lu and calcium channel lu. Lipid panel was stable. Statin was continued. Stress test results were negative. Calculated ejection fraction was 77%. According to sheet metal apprentice, the patient had atypical chest pain. Cinical Findings Show: EKG = NORMAL Troponin = NEGATIVE X3 ECHO = PRESERVED EF 65% EF = 77% Please document the suspected etiology of Chest Pain: a.Type: []Cardiac []Non-cardiac []Unspecified b.Etiology - cardiac [] Aortic dissection []Mitral valve prolapsed [] Acute myocardial infarction []Spasm of coronary arteries [] Coronary Artery Disease []Pericarditis c.Etiology - non-cardiac [] Anxiety []Pleurisy [] Cancer []Pneumonia, type [] Costochondritis []Pneumothorax [] GERD/Esophagitis []Pulmonary embolism [] Unable to determine []Other: Please also document in your Progress Notes and/or Discharge Summary and indicate if the condition was present on admission. ERASMO CASTANEDA M.D. DATE & TIME MTDD
== END 2017-08-20 20:35 | disposition home or self-care (01) | DRG 203 ==
LOC: EMR 16:10 → 2E 16:38 → EDBEDREQ 17:02 → 2E 18:05
DX: R07.89 Other chest pain (principal); I10 Essential (primary) hypertension; E78.5 Hyperlipidemia, unspecified; Z88.2 Allergy status to sulfonamides; K21.9 Gastro-esophageal reflux disease without esophagitis
CPT/HCPCS: 36415; 71045; 78452; 80048; 80053; 80061; 80307; 81003; 81025; 82550; 82553; 83036; 83880; 84443; 84484; 85025; 86710; 90630; 93005; 93017; 93306; 94640; 94664; 99285; J2405; J2785; J7620